=== PATIENT | female | born 2005 | race Caucasian/White ===

== ENCOUNTER 2024-06-26 07:27 | Emergency (ER) | payer MEDICAID ==
[~2024-06-26] VITALS: Ht 177.8 cm; Wt 127.5 kg
[2024-06-26 08:26] LABS: STREP A SCREEN NEGATIVE (Neg)
[2024-06-26 09:49] VITALS: BP 123/78; PULSE 78; RESP 18; TEMP 97.9; O2SAT 97
== END 2024-06-26 09:50 | disposition home or self-care (01) ==
LOC: ER 07:28
DX: J02.9 Acute pharyngitis, unspecified (principal); Z20.822 Contact with and (suspected) exposure to COVID-19
CPT/HCPCS: 36415; 87081; 87811; 87880; 99283